=== PATIENT | male | born 1990 | race Caucasian/White ===

== ENCOUNTER → 2020-08-17 | Outpatient (CLI) | payer MEDICAID | LOC: COL.RAD 06:49 | DX: K80.20 Calculus of gallbladder without cholecystitis without obstruction (principal) ==

== ENCOUNTER → 2021-06-07 | Outpatient (CLI) | payer MEDICAID | LOC: COL.RAD 09:51 | DX: R51.9 Headache, unspecified (principal) | CPT/HCPCS: A9575 ==